=== PATIENT | male | born 1995 | race Hispanic/Latino ===

== ENCOUNTER 2019-04-21 07:28 | Emergency (ER) | payer OTHER ==
--- OUTSIDE RECORDS SUMMARY | 2019-04-21 07:31 | XMS REPORT | Summary of Care ---
:1995 Author Organization [facility] - Health Address [address] [place] [address] Care Team Providers Name Role Phone Unavailable Primary Care Provider Unavailable Encounter Details Date Type Department Care Team Description 04/08/2019 Orders Only [facility] Doctor Unassigned, No [address] [facility] [place] [address] [address] [place] [address] Allergies No Known Allergiesdocumented as of this encounter (statuses as of 04/08/2019) Medications Not on filedocumented as of this encounter (statuses as of 04/08/2019) Active Problems Problem Noted Date Routine infant or child health check 12/24/2006 Overview: 11 1/4 year [facility] documented as of this encounter (statuses as of 04/08/2019) Social History Tobacco Use Types Packs/Day Years Used Date Never Assessed Sex Assigned at Date Recorded Not on file Job Start Date Occupation Industry Not on file Not on file Not on file Travel History Travel Start Travel End No recent travel history available. documented as of this encounter Last Filed Vital Signs Not on filedocumented in this encounter Plan of Treatment Health Maintenance Due Date Last Done Comments MENINGOCOCCAL B VACCINES (1 of 2 - 2007 Risk Bexsero 2-dose series) HPV VACCINES (1 - Male 3-dose 2012 series) DTaP,Tdap,and Td Vaccines (1 - 2016 Tdap) INFLUENZA VACCINE 05/11/2019 MENINGOCOCCAL VACCINE Aged Out No longer eligible based on patient's age to complete this topic documented as of this encounter Procedures Procedure Name Priority Date/Time Associated Diagnosis Comments CONSENT/REFUSAL FOR Routine 04/08/2019 6:21 AM CDT DIAGNOSIS AND TREATMENT documented in this encounter Results Not on filedocumented in this encounter
--- OUTSIDE RECORDS SUMMARY | 2019-04-21 07:31 | XMS REPORT | Summary of Care ---
:1995 Author Organization [facility] - [facility] Address [address] [place] [id number] Care Team Providers Name Role Phone Pcp, Patient Does Not Have A Primary Care Provider Reason for Visit Reason Comments Vomiting Auth/Cert Status Reason Specialty Diagnoses / Referred By Referred To Procedures Contact Contact [facility] [address] [place] [address] [place] [address] Encounter Details Date Type Department Care Team Description 04/08/2019 Emergency [facility] Radha Roque, Headache disorder ( Primary Dx); Department Nausea and vomiting in adult; [address] [place] [address] [place] [address] Elevated blood pressure reading; [place] [address] [id number] Secondary hypertension [phone] [place] [address] Allergies No Known Allergiesdocumented as of this encounter (statuses as of 04/08/2019) Medications Medication Sig Dispensed Refills Start Date End Date Status lisinopril 10 mg Take 1 tablet by 30 tablet 0 04/08/2019 Active tabletIndications: mouth at bedtime. Secondary hypertension documented as of this encounter (statuses as of 04/08/2019) Active Problems Problem Noted Date Routine or child health check 12/24/2006 Overview: 11 1/2 year [facility] documented as of this encounter (statuses as of 04/08/2019) Social History Tobacco Use Types Packs/Day Years Used Date Never Assessed Sex Assigned at Date Recorded Not on file Job Start Date Occupation Industry Not on file Not on file Not on file Travel History Travel Start Travel End No recent travel history available. documented as of this encounter Last Filed Vital Signs Vital Sign Reading Time Taken Comments Blood Pressure 147/100 04/08/2019 8:43 AM CDT Pulse 84 04/08/2019 8:43 AM CDT Temperature 37.2 C (99 F) 04/08/2019 6:27 AM CDT Respiratory Rate 20 04/08/2019 8:43 AM CDT Oxygen Saturation 99% 04/08/2019 8:43 AM CDT Inhaled Oxygen Concentration - - Weight 90.7 kg (200 lb) 04/08/2019 6:32 AM CDT Height - - Body Mass Index - - documented in this encounter Discharge Instructions David Nunez DO - 04/08/2019 DIAGNOSIS Diagnoses that have been ruled out: None Diagnoses that are still under consideration: None Final diagnoses: Headache disorder Nausea and vomiting in adult Elevated blood pressure reading Secondary hypertension NO LIFE-THREATENING FINDINGS ON TODAY'S EXAM. PROCEDURES IN THE ER TODAY: Orders Placed This Encounter Procedures CBC WITH DIFF BASIC METABOLIC PANEL (NA, K, CL, CO2, GLUCOSE, BUN, CREATININE, CA) CBC WITH DIFFERENTIAL LIPASE HEPATIC FUNCTION PANEL (57463) (ALB,T.PRO,BILI T,BU/BC,ALT,AST,ALK PHOS) LIPID PANEL (20921)(TOTAL CHOLESTEROL, TRIGLYCERIDES, HDL) MEDICATIONS ADMINISTERED IN THE ER TODAY AND DISCHARGE MEDICATIONS: Orders Placed This Encounter Medications metoclopramide HCl (REGLAN) injection 10 mg FENTanyl PF (SUBLIMAZE (PF)) injection 50 mcg FOLLOW-UP RECOMMENDATIONS: RECOMMEND FOLLOW-UP WITH A PRIMARY CARE PROVIDER OR SPECIALIST IN 2-5 DAYS, ESPECIALLY IF NO IMPROVEMENT IN SYMPTOMS. MAY FOLLOW-UP WITH A PROVIDER OF YOUR CHOICE, SUCH : 1. A PHYSICIAN OF YOUR CHOICE 2. [facility], . LOCATIONS IN [facility] 3. [facility], [address] [place] [address]; OR, IF YOU WISH TO FOLLOW-UP WITHIN THE [facility], MAY TRY THESE OPTIONS (CLINIC APPOINTMENTS AVAILABLE ON XSOV-FS-DSOV BASIS): 1. SCHEDULE AN APPOINTMENT ONLINE AT WWW[facility] 2. OR CALL THE [facility] AT OR 3. OR CALL YOUR [facility] PHYSICIAN'S OFFICE DIRECTLY IF YOU ARE ALREADY AN ESTABLISHED [facility] PATIENT. RETURN TO ER FOR WORSENING OF SYMPTOMS. AttachmentsThe following attachments cannot be sent through Care Everywhere.Choices, Low-Salt (Marshallese)documented in this encounter Plan of Treatment Health Maintenance Due Date Last Done Comments MENINGOCOCCAL B VACCINES (1 of 2 - 2007 Risk Bexsero 2-dose series) VARICELLA VACCINES (1 of 2 - 13+ 2010 2-dose series) HPV VACCINES (1 - Male 3-dose 2012 series) DTaP,Tdap,and Td Vaccines (1 - 2016 Tdap) INFLUENZA VACCINE 05/11/2019 MENINGOCOCCAL VACCINE Aged Out No longer eligible based on patient's age to complete this topic PNEUMOCOCCAL 0-64 YEARS COMBINED Aged Out No longer eligible based on SERIES patient's age to complete this topic documented as of this encounter Procedures Procedure Name Priority Date/Time Associated Comments Diagnosis CBC WITH DIFFERENTIAL STAT 04/08/2019 6:45 Headache disorder Results for this AM CDT procedure are in the results section. CBC WITH DIFF STAT 04/08/2019 6:45 Headache disorder Results for this AM CDT procedure are in the results section. LIPID PANEL STAT Add-On 04/08/2019 6:45 Nausea and Results for this (43917)(TOTAL AM CDT vomiting in adult procedure are in CHOLESTEROL, the results TRIGLYCERIDES, HDL) section. BASIC METABOLIC PANEL STAT 04/08/2019 6:45 Headache disorder Results for this (NA, K, CL, CO2, AM CDT procedure are in GLUCOSE, BUN, the results CREATININE, CA) section. HEPATIC FUNCTION STAT 04/08/2019 6:45 Headache disorder Results for this PANEL (25093) AM CDT procedure are in (ALB,T.PRO,BILI the results T,BU/BC,ALT,AST,ALK section. PHOS) LIPASE STAT 04/08/2019 6:45 Headache disorder Results for this AM CDT procedure are in the results section. NOTICE OF PRIVACY Routine 04/08/2019 6:21 PRACTICES AM CDT documented in this encounter Results LIPID PANEL (04801)(TOTAL CHOLESTEROL, TRIGLYCERIDES, HDL) (04/08/2019 6:45 AM CDT) CHOL 201 (H) 120 - 200 mg/dL [facility] HDL 39 (L) >40 mg/dL [facility] HDLC RATIO 5.2 (H) <=5.0 [facility] TRIG 213 (H) 30 - 170 mg/dL [facility] LDL CHOL 119 <=160 mg/dL [facility] VLDL 43 5 - 60 mg/dL [facility] Specimen Blood - VENOUS Performing Organization Address [facility] Phone Number [facility] CLIA: [id number], [address] [place] [address] HEPATIC FUNCTION PANEL ([id number]) (ALB,T.PRO,BILI T,BU/BC,ALT,AST,ALK PHOS) (2018 6:45 AM CDT) TOTAL BILI 0.5 0.1 - 1.1 mg/dL [facility] BILI UNCON 0.3 0.1 - 1.1 mg/dL [facility] BILI CONJ 0.0 0.0 - 0.3 mg/dL [facility] T PROTEIN 7.8 6.3 - 8.2 g/dL [facility] ALBUMIN 4.6 3.5 - 5.0 g/dL [facility] ALK PHOS 87 34 - 122 U/L [facility] ALT(SGPT) 150 (H) 9 - 51 U/L [facility] AST(SGOT) 82 (H) 13 - 40 U/L [facility] Specimen Blood - VENOUS Performing Organization Address [facility] Phone Number [facility] CLIA: [id number], [address] [place] [address] LIPASE (04/08/2019 6:45 AM CDT) LIPASE 65 0 - 220 U/L [facility] Specimen Blood - VENOUS Performing Organization Address [facility] Phone Number [facility] CLIA: [id number], [address] [place] [address] CBC WITH DIFFERENTIAL (04/08/2019 6:45 AM CDT) WBC 7.47 4.20 - 10.70 [facility] 10*3/L [facility] RBC 4.74 4.26 - 5.52 [facility] 10*6/L [facility] HGB 14.4 12.2 - 16.4 [facility] g/dL [facility] HCT 41.1 38.4 - 49.3 % [facility] MCV 86.7 81.7 - 95.6 fL [facility] MCH 30.4 26.1 - 32.7 pg [facility] MCHC 35.0 31.2 - 35.0 [facility] g/dL [facility] RDW-SD 42.3 38.5 - 51.6 fL [facility] RDW-CV 13.4 12.1 - 15.4 % [facility] PLT 302 150 - 328 [facility] 10*3/L [facility] MPV 9.7 (L) 9.8 - 13.0 fL [facility] NRBC/100 WBC 0.0 0.0 - 10.0 /100 [facility] WBCs [facility] NRBC x10^3 <0.01 10*3/L [facility] GRAN MAT (NEUT) % 49.6 % [facility] IMM GRAN % 3.10 % [facility] LYMPH % 32.3 % [facility] MONO % 10.3 % [facility] EOS % 3.1 % [facility] BASO % 1.6 % [facility] GRAN MAT x10^3(ANC) 3.71 1.99 - 6.95 [facility] 10*3/uL HOSPITAL LAB[facility]ATORY IMM GRAN x10^3 0.23 (H) 0.00 - 0.06 [facility] 10*3/uL [facility]PITAL [facility] LYMPH x10^3 2.41 1.09 - 3.23 [facility] 10*3/uL [facility]OSPITAL [facility] MONO x10^3 0.77 0.36 - 1.02 [facility] 10*3/uL HOSPITAL LAB[facility]ORY EOS x10^3 0.23 0.06 - 0.53 [facility] 10*3/uL HOSPITAL [facility] BASO x10^3 0.12 (H) 0.01 - 0.09 [facility] 10*3/uL [facility]OSPITAL [facility] Specimen Blood - VENOUS Performing Organization Address City/State/Zipcode Phone Number [facility] CLIA: [id number], [address] [place] [address] BASIC METABOLIC PANEL (NA, K, CL, CO2, GLUCOSE, BUN, CREATININE, CA) (2018 6:45 AM CDT) NA 144 135 - 145 [facility] mmol/L [facility] K 4.1 3.5 - 5.0 [facility] mmol/L [facility] CL 109 (H) 98 - 108 mmol/L [facility] CO2 TOTAL 24 23 - 31 mmol/L [facility] AGAP 11 2 - 16 [facility] BUN 8 7 - 23 mg/dL [facility] GLUCOSE 106 70 - 110 mg/dL [facility] CREATININE 0.70 0.60 - 1.25 [facility] mg/dL [facility] CALCIUM 9.1 8.6 - 10.6 [facility] mg/dL [facility] eGFR Calculation 142.4 mL/min/1.73m2 [facility] (Non[facility] LABORATORY Pakistani) eGFR Calculation 172.5 mL/min/1.73m2 [facility] () [facility] Specimen Blood - VENOUS Narrative Performed At Association of Glomerular Filtration Rate (GFR) [facility] and Staging of Kidney Disease* + + +- + | GFR (mL/min/1.73 m2)| With Kidney Damage|Without Kidney Damage + + +- + |>90| Stage one| Normal + + +- + |60-89|S tage two| Decreased GFR + + +- + |30-59|S tage three| Stage three + + +- + |15-29|S tage four | Stage four + + +- + |<15 (or dialysis)|Stage five | Stage five + + +- + *Each stage assumes the associated GFR level has been in effect for at least three months.Stages 1 to 5, with or without kidney disease, indicate chronic kidney disease. Notes: Determination of stages one and two (with eGFR >59mL/min/1.73 m2) requires estimation of kidney damage for at least three months as defined by structural or functional abnormalities of the kidney, manifested by either: Pathological abnormalities or Markers of kidney damage (including abnormalities in the composition of the blood or urine or abnormalities in imaging tests). Performing Organization Address City/State/Zipcode Phone Number [facility] CLIA: [id number], [address] [place] [address] documented in this encounter Visit Diagnoses Diagnosis Headache disorder - Primary Headache Nausea and vomiting in adult Nausea with vomiting Elevated blood pressure reading Elevated blood pressure reading without diagnosis of hypertension Secondary hypertension Other secondary hypertension, unspecified documented in this encounter Administered Medications Medication Order MAR Action Action Date Dose Rate Site FENTanyl PF (SUBLIMAZE (PF)) Given 04/08/2019 6:47 AM CDT 50 mcg injection 50 mcg 50 mcg, Slow IV Push, ONCE, 1 dose, Sun04/08/19 at 0745, STAT metoclopramide HCl (REGLAN) injection 10 mg Given 04/08/2019 6:47 AM CDT 10 mg 10 mg, Slow IV Push, ONCE, 1 dose, Sun04/08/19 at 0745, DAVID documented in this encounter"
--- OUTSIDE RECORDS SUMMARY | 2019-04-21 07:31 | XMS REPORT ---
:1995 [facility] Address [facility] Elena [address] [place] [address] Care Team Providers Name Role Phone Unavailable Unavailable Unavailable Problems This patient has no known problems. Allergies, Adverse Reactions, Alerts This patient has no known allergies or adverse reactions. Medications This patient has no known medications.
--- NOTE | 2019-04-21 08:37 | ER ---
Nurse's Notes [facility] Name: Claudio Salinas Age: 23 yrs Sex: Male : 1995 Arrival Date: 04/21/2019 Time: 07:30 Bed 13 Private MD: Diagnosis: Pneumonitis due to inhalation of other solids and liquids Presentation: 04/21 07:42 Presenting complaint: Patient states: " I was on my way to work and I started coughing ph a whole lot and my chest started hurting." Pt reports cough x 2-3 days, denies fever or chills, reports that chest pain is worsened by cough, denies SOB. Transition of care: patient was not received from another setting of care. Onset of symptoms was April 21, 2019. Risk Assessment: Do you want to hurt yourself or someone else? Patient reports no desire to harm self or others. Initial Sepsis Screen: Does the patient meet any 2 criteria? No. Patient's initial sepsis screen is negative. Does the patient have a suspected source of infection? No. Patient's initial sepsis screen is negative. Care prior to arrival: None. 07:42 Method Of Arrival: Ambulatory ph 07:42 Acuity: LIVIER 4 ph Historical: - Allergies: 07:47 No Known Allergies; ph - Home Meds: 07:47 None [Active]; ph - PMHx: 07:47 None; ph - PSHx: 07:47 None; ph - Immunization history:: Adult Immunizations unknown. - Social history:: Smoking status: Patient/guardian denies using tobacco. - Ebola Screening: : No symptoms or risks identified at this time. Screenin:47 Abuse screen: Denies threats or abuse. Denies injuries from another. Nutritional ph screening: No deficits noted. Tuberculosis screening: No symptoms or risk factors identified. Fall Risk None identified. Assessment: 07:48 General: Appears in no apparent distress. comfortable, Behavior is calm, cooperative, ph appropriate for age, Denies fever, chills. Pain: Complains of pain in chest Pain does not radiate. Pain began 1 hour ago. Aggravated by "coughing". Neuro: Level of Consciousness is awake, alert, obeys commands, Oriented to person, place, time, situation. Cardiovascular: Reports chest pain, Denies nausea, palpitations, shortness of breath, Capillary refill < 3 seconds in bilateral fingers Patient's skin is warm and dry. Respiratory: Reports cough that is non-productive, pain with cough Airway is patent Respiratory effort is even, unlabored, Respiratory pattern is regular, symmetrical, Denies shortness of breath. GI: No signs and/or symptoms were reported involving the gastrointestinal system. Derm: Skin is intact, is healthy with good turgor, Skin is pink, warm \\T\\ dry. Musculoskeletal: Circulation, motion, and sensation intact. Range of motion: intact in all extremities. 09:00 Reassessment: Patient appears in no apparent distress at this time. Patient and/or ph family updated on plan of care and expected duration. Pain level reassessed. Patient is alert, oriented x 3, equal unlabored respirations, skin warm/dry/pink. Pt d/c home w/ family. Vital Signs: 07:45 BP 145 / 88; Pulse 84; Resp 18; Temp 98.2; Pulse Ox 100% on R/A; Weight 108.86 kg; ph Height 5 ft. 10 in. (177.80 cm); Pain 8/10; 09:00 BP 126 / 65; Pulse 85; Resp 18; Temp 97.9; Pulse Ox 100% on R/A; ph 07:45 Body Mass Index 34.44 (108.86 kg, 177.80 cm) ph ED Course: 07:30 Patient arrived in ED. rg4 07:35 Alison William FNP-C [facility]. snw 07:35 Osmar Love MD is Attending Physician. snw 07:42 Emily Bedolla RN is Primary Nurse. ph 07:45 Triage completed. ph 07:47 Arm band placed on Patient placed in a hallway bed, on a stretcher, on pulse oximetry. ph 07:50 Patient has correct armband on for positive identification. Bed in low position. Call ph light in reach. Pulse ox on. NIBP on. Door closed. Noise minimized. Head of bed elevated. 07:50 Patient maintains SpO2 saturation greater than 95% on room air. ph 08:05 Patient moved to radiology via wheelchair. jb2 08:11 X-ray completed. Patient tolerated procedure well. jb2 08:12 Chest Pa And Lat (2 Views) XRAY In Process Unspecified. EDMS 08:15 Patient moved back from radiology. jb2 08:45 No provider procedures requiring assistance completed. Urine collected: clean catch ph specimen, clear, cassie colored. Patient did not have IV access during this emergency room visit. Administered Medications: 08:40 Drug: TORadol 30 mg Route: IM; Site: right deltoid; ph 08:58 Follow up: Response: No adverse reaction; Pain is decreased ph Outcome: 08:37 Discharge ordered by . corinne 09:01 Discharged to home ambulatory, with family. ph 09:01 Condition: good 09:01 Discharge instructions given to patient, Instructed on discharge instructions, follow up and referral plans. medication usage, Demonstrated understanding of instructions, follow-up care, medications, Prescriptions given X 1. 09:01 Patient left the ED. Signatures: Dispatcher [employer] EDMS Alison William, SALOME CALLAHANP-Milo Berkowitz jb2 Emily Bedolla RN RN Esperanza Waldrop rg4
--- NOTE | 2019-04-21 08:37 | EDPHYS ---
Physician Documentation [facility] Name: Claudio Salinas Age: 23 yrs Sex: Male : 1995 Arrival Date: 04/21/2019 Time: 07:30 Bed 13 Private MD: ED Physician Osmar Love HPI: 04/21 08:43 This 23 yrs old Male presents to ER via Ambulatory with complaints of Cough, snw Chest Pain. 08:43 The patient or guardian reports cough, described as moderate, with no sputum. Onset: snw The symptoms/episode began/occurred suddenly, 3 day(s) ago, and became worse and became persistent. Severity of symptoms: At their worst the symptoms were moderate. Associated signs and symptoms: Pertinent positives: chest pain. The patient has not experienced similar symptoms in the past. The patient has not recently seen a physician. pt works with [employer] . Historical: - Allergies: 07:47 No Known Allergies; ph - Home Meds: 07:47 None [Active]; ph - PMHx: 07:47 None; ph - PSHx: 07:47 None; ph - Immunization history:: Adult Immunizations unknown. - Social history:: Smoking status: Patient/guardian denies using tobacco. - Ebola Screening: : No symptoms or risks identified at this time. ROS: 08:43 Constitutional: Negative for fever, chills, and weight loss, Eyes: Negative for injury, snw pain, redness, and discharge, ENT: Negative for injury, pain, and discharge, Neck: Negative for injury, pain, and swelling, Abdomen/GI: Negative for abdominal pain, nausea, vomiting, diarrhea, and constipation, Back: Negative for injury and pain, : Negative for injury, bleeding, discharge, and swelling, MS/Extremity: Negative for injury and deformity, Skin: Negative for injury, rash, and discoloration, Neuro: Negative for headache, weakness, numbness, tingling, and seizure. 08:43 Cardiovascular: Positive for chest pain, with cough. 08:43 Respiratory: Positive for cough, with no reported sputum, Negative for hemoptysis, shortness of breath. Exam: 08:43 Constitutional: This is a well developed, well nourished patient who is awake, alert, snw and in no acute distress. Head/Face: Normocephalic, atraumatic. Eyes: Pupils equal round and reactive to light, extra-ocular motions intact. Lids and lashes normal. Conjunctiva and sclera are non-icteric and not injected. Cornea within normal limits. Periorbital areas with no swelling, redness, or edema. ENT: Nares patent. No nasal discharge, no septal abnormalities noted. Tympanic membranes are normal and external auditory canals are clear. Oropharynx with no redness, swelling, or masses, exudates, or evidence of obstruction, uvula midline. Mucous membranes moist. Neck: Trachea midline, no thyromegaly or masses palpated, and no cervical lymphadenopathy. Supple, full range of motion without nuchal rigidity, or vertebral point tenderness. No Meningismus. Chest/axilla: Normal chest wall appearance and motion. Nontender with no deformity. No lesions are appreciated. Cardiovascular: Regular rate and rhythm with a normal S1 and S2. No gallops, murmurs, or rubs. Normal PMI, no JVD. No pulse deficits. Respiratory: Lungs have equal breath sounds bilaterally, clear to auscultation and percussion. No rales, rhonchi or wheezes noted. No increased work of breathing, no retractions or nasal flaring. Abdomen/GI: Soft, non-tender, with normal bowel sounds. No distension or tympany. No guarding or rebound. No evidence of tenderness throughout. Back: No spinal tenderness. No costovertebral tenderness. Full range of motion. Skin: Warm, dry with normal turgor. Normal color with no rashes, no lesions, and no evidence of cellulitis. MS/ Extremity: Pulses equal, no cyanosis. Neurovascular intact. Full, normal range of motion. Neuro: Awake and alert, GCS 15, oriented to person, place, time, and situation. Cranial nerves II-XII grossly intact. Motor strength 5/5 in all extremities. Sensory grossly intact. Cerebellar exam normal. Normal gait. Psych: Awake, alert, with orientation to person, place and time. Behavior, mood, and affect are within normal limits. Vital Signs: 07:45 BP 145 / 88; Pulse 84; Resp 18; Temp 98.2; Pulse Ox 100% on R/A; Weight 108.86 kg; ph Height 5 ft. 10 in. (177.80 cm); Pain 8/10; 09:00 BP 126 / 65; Pulse 85; Resp 18; Temp 97.9; Pulse Ox 100% on R/A; ph 07:45 Body Mass Index 34.44 (108.86 kg, 177.80 cm) ph MDM: 07:49 Patient medically screened. snw 08:46 Data reviewed: vital signs, nurses notes, lab test result(s), EKG, radiologic studies. snw Data interpreted: Pulse oximetry: on room air is 100 %. Interpretation: normal. Counseling: I had a detailed discussion with the patient and/or guardian regarding: the historical points, exam findings, and any diagnostic results supporting the discharge/admit diagnosis, radiology results, the need for outpatient follow up, to return to the emergency department if symptoms worsen or persist or if there are any questions or concerns that arise at home. Special discussion: Based on the patient's history, exam, and Dx evaluation, there is no indication for emergent intervention or inpatient Tx. It is understood by the patient/guardian that if the Sx's persist or worsen they need to return immediately for re-evaluation. Based on the history and exam findings, there is no indication for further emergent testing or inpatient evaluation. I discussed with the patient/guardian the need to see the primary care provider for further evaluation of the symptoms. 04/21 07:59 Order name: UDS; Complete Time: 12:15 snw 04/21 08:46 Order name: Urine Dipstick--Ancillary (enter results); Complete Time: 12:15 bd 04/21 07:35 Order name: EKG; Complete Time: 07:39 snw 04/21 07:35 Order name: EKG - Nurse/Tech; Complete Time: 07:51 snw 04/21 07:35 Order name: Chest Pa And Lat (2 Views) XRAY; Complete Time: 12:15 snw Administered Medications: 08:40 Drug: TORadol 30 mg Route: IM; Site: right deltoid; ph 08:58 Follow up: Response: No adverse reaction; Pain is decreased ph Disposition: 10:54 Co-signature as Attending Physician, Osmar Love MD. rn Disposition: 04/21/19 08:37 Discharged to Home. Impression: Pneumonitis due to inhalation of other solids and liquids. - Condition is Stable. - Discharge Instructions: Pneumonitis, Rehydration, Adult. - Prescriptions for Mobic 7.5 mg Oral Tablet - take 1 tablet by ORAL route once daily take with food; 20 tablet. - Work release form, Medication Reconciliation Form, Thank You Letter, Antibiotic Education, Prescription Opioid Use form. - Follow up: Private Physician; When: 2 - 3 days; Reason: Recheck today's complaints, Continuance of care, Re-evaluation by your physician. Follow up: Emergency Department; When: As needed. Signatures: Dispatcher [employer] EDAlison Russo, REBA-C [facility] [employer] Osmar Love MD MD rn Emily Bedolla RN RN ph Corrections: (The following items were deleted from the chart) 09:01 08:37 04/21/2019 08:37 Discharged to Home. Impression: Pneumonitis due to inhalation of ph other solids and liquids. Condition is Stable. Forms are Medication Reconciliation Form, Thank You Letter, Antibiotic Education, Prescription Opioid Use. Follow up: Private Physician; When: 2 - 3 days; Reason: Recheck today's complaints, Continuance of care, Re-evaluation by your physician. Follow up: Emergency Department; When: As needed. snw
[2019-04-21] MEDS ORDERED: KETOROLAC 30 MG/ML INJ ONE (08:39)
--- NOTE | 2019-04-21 09:00 | RAD REPORT ---
EXAM DESCRIPTION: RAD - Chest Pa And Lat (2 Views) - 04/21/2019 8:20 am CLINICAL HISTORY: CHEST PAIN Chest pain. COMPARISON: No comparisons FINDINGS: The lungs are clear. The heart is normal in size. No displaced fractures. IMPRESSION: No acute or concerning finding suspected.
[2019-04-21 09:01] LABS: Urine Blood NEGATIVE (NEG); Urine Glucose NEGATIVE (NEG); Urine Protein NEGATIVE (NEG); Urine Specific Gravity >1.030 (1.005-1.030); Urine pH 5.5 (5.0-7.0)
[2019-04-21 09:11] VITALS: O2SAT 100
[2019-04-21 09:12] VITALS: BP 126/65; TEMP 97.9
[2019-04-21 09:18] LABS: Barbiturates NEGATIVE (NEGATIVE); Benzodiazepines NEGATIVE (NEGATIVE); Cocaine NEGATIVE (NEGATIVE); METHAMPHETAM NEGATIVE (NEGATIVE); Methadone NEGATIVE (NEGATIVE); Opiates NEGATIVE (NEGATIVE); Phencyclidine NEGATIVE (NEGATIVE); THC Cannibis NEGATIVE (NEGATIVE)
--- NOTE | 2019-04-21 10:40 | EKG ---
Test Date: 2019-04-21 Test Time: 07:48:28 [employer] Assurance Test Program Manager: ADAN MEASUREMENT RESULTS: Intervals: Rate: 76 [place]: 132 QRSD: 90 QT: 358 QTc: 402 [place]: P: 34 [place]: 132 QRS: 13 T: 13 INTERPRETIVE STATEMENTS: Normal sinus rhythm Normal ECG No previous ECG available for comparison Electronically Signed On 04-21-19 10:39:17 CDT by Kapil Wilburn
== END 2019-04-21 09:01 | disposition home or self-care (01) ==
LOC: ER 07:28
DX: J69.8 Pneumonitis due to inhalation of other solids and liquids (principal)
CPT/HCPCS: 71046; 80307; 81003; 93005; 96372; 99284

== ENCOUNTER 2020-05-13 12:19 | Emergency (ER) | payer OTHER ==
--- OUTSIDE RECORDS SUMMARY | 2020-05-13 12:41 | XMS REPORT | Continuity of Care Document ---
:1995 Author Organization [facility] t Address [address] [place] [address] Care Team Providers Name Role Phone Radha Roque MD Attending Clinician Doctor Unassigned, Name Attending Clinician Unavailable Problems This patient has no known problems. Allergies, Adverse Reactions, Alerts This patient has no known allergies or adverse reactions. Medications This patient has no known medications. Procedures This patient has no known procedures. Encounters Start End Encounter Admission Attending Care Care Encounter Source Date/Time Date/Time Type Type Clinicians Facility Department ID 2019-04-08 2019-04-08 Emergency Jude [facility] [[email or web address]] [id number] 06:28:23 08:49:00 Radha Chan [id number] [place] [id number] [place] [id number] 2019-04-08 2019-04-08 Orders Doctor DUNN [id number] 00:00:00 00:00:00 Only UnassignedWONG [id number] [place] [facility] [id number] Results This patient has no known results.
--- NOTE | 2020-05-13 12:50 | EDPHYS ---
Physician Documentation [facility] Name: Claudio Salinas Age: 24 yrs Sex: Male : 1995 Arrival Date: 05/13/2020 Time: 12:20 Bed 17 Private MD: ED Physician Titi Vazquez HPI: 05/13 12:50 This 24 yrs old Male presents to ER via Ambulatory with complaints of Ear Pain.jr8 12:50 The patient presents with pain. The complaints affect the left ear. Onset: The jr8 symptoms/episode began/occurred acutely, 3 day(s) ago, and became worse. Modifying factors: The symptoms are alleviated by nothing, the symptoms are aggravated by nothing. Associated signs and symptoms: The patient has no apparent associated signs or symptoms. Severity of symptoms: At their worst the symptoms were mild in the emergency department the symptoms are unchanged. The patient has not experienced similar symptoms in the past. The patient has not recently seen a physician. Historical: - Allergies: 12:26 No Known Allergies; hb - Home Meds: 12:26 None [Active]; hb - PMHx: 12:26 None; hb - PSHx: 12:26 None; hb - Immunization history:: Adult Immunizations up to date. - Social history:: Smoking status: Patient denies any tobacco usage or history of. ROS: 12:50 Eyes: Negative for injury, pain, redness, and discharge, Neck: Negative for injury, jr8 pain, and swelling, Cardiovascular: Negative for chest pain, palpitations, and edema, Respiratory: Negative for shortness of breath, cough, wheezing, and pleuritic chest pain, Abdomen/GI: Negative for abdominal pain, nausea, vomiting, diarrhea, and constipation, Back: Negative for injury and pain, MS/Extremity: Negative for injury and deformity, Skin: Negative for injury, rash, and discoloration, Neuro: Negative for headache, weakness, numbness, tingling, and seizure. 12:50 ENT: Positive for ear pain. Exam: 12:50 Eyes: Pupils equal round and reactive to light, extra-ocular motions intact. Lids and jr8 lashes normal. Conjunctiva and sclera are non-icteric and not injected. Cornea within normal limits. Periorbital areas with no swelling, redness, or edema. ENT: Nares patent. No nasal discharge, no septal abnormalities noted. Tympanic membranes are with erythema and dullness on left side. Right TM normal. External auditory canals are clear. Oropharynx with no redness, swelling, or masses, exudates, or evidence of obstruction, uvula midline. Mucous membranes moist. Neck: Trachea midline, no thyromegaly or masses palpated, and no cervical lymphadenopathy. Supple, full range of motion without nuchal rigidity, or vertebral point tenderness. No Meningismus. Cardiovascular: Regular rate and rhythm with a normal S1 and S2. No gallops, murmurs, or rubs. Normal PMI, no JVD. No pulse deficits. Respiratory: Lungs have equal breath sounds bilaterally, clear to auscultation and percussion. No rales, rhonchi or wheezes noted. No increased work of breathing, no retractions or nasal flaring. Abdomen/GI: Soft, non-tender, with normal bowel sounds. No distension or tympany. No guarding or rebound. No evidence of tenderness throughout. Skin: Warm, dry with normal turgor. Normal color with no rashes, no lesions, and no evidence of cellulitis. MS/ Extremity: Pulses equal, no cyanosis. Neurovascular intact. Full, normal range of motion. Neuro: Awake and alert, GCS 15, oriented to person, place, time, and situation. Cranial nerves II-XII grossly intact. Motor strength 5/5 in all extremities. Sensory grossly intact. Cerebellar exam normal. Normal gait. Vital Signs: 12:25 BP 144 / 95; Pulse 93; Resp 16; Temp 97.2; Pulse Ox 100% on R/A; Weight 117.93 kg; hb Height 5 ft. 11 in. (180.34 cm); Pain 0/10; 13:04 BP 137 / 87; Pulse 79; Resp 17; Temp 97.5; Pulse Ox 99% ; bp 12:25 Body Mass Index 36.26 (117.93 kg, 180.34 cm) hb MDM: 12:47 Patient medically screened. jr8 12:50 Data reviewed: vital signs, nurses notes, and as a result, I will discharge patient. jr8 Data interpreted: Pulse oximetry: on room air is 100 %. Interpretation: normal. Counseling: I had a detailed discussion with the patient and/or guardian regarding: the historical points, exam findings, and any diagnostic results supporting the discharge/admit diagnosis, the need for outpatient follow up, a family practitioner. Administered Medications: No medications were administered Disposition: 17:06 Co-signature as Attending Physician, Titi Vazquez MD I agree with the assessment and kdr plan of care. Disposition: 05/13/20 12:50 Discharged to Home. Impression: Acute suppurative otitis media. - Condition is Stable. - Discharge Instructions: Otitis Media, Adult. - Prescriptions for Amoxicillin 875 mg Oral Tablet - take 1 tablet by ORAL route every 12 hours for 10 days; 20 tablet. - Medication Reconciliation Form, Thank You Letter, Antibiotic Education, Prescription Opioid Use form. - Follow up: Private Physician; When: As needed; Reason: Recheck today's complaints, Continuance of care, Re-evaluation by your physician. - Problem is new. - Symptoms have improved. Signatures: Titi Vazquez MD MD [facility] Aidan Plunkett PA PA jr8 Jayashree Carrington, RN RN Robert Purcell RN RN bp Corrections: (The following items were deleted from the chart) 13:06 12:50 05/13/2020 12:50 Discharged to Home. Impression: Acute suppurative otitis media. bp Condition is Stable. Forms are Medication Reconciliation Form, Thank You Letter, Antibiotic Education, Prescription Opioid Use. Follow up: Private Physician; When: As needed; Reason: Recheck today's complaints, Continuance of care, Re-evaluation by your physician. Problem is new. Symptoms have improved. jr8
--- NOTE | 2020-05-13 12:50 | ER ---
[facility] Name: Claudio Salinas Age: 24 yrs Sex: Male : 1995 Arrival Date: 05/13/2020 Time: 12:20 Bed 17 Private MD: Diagnosis: Acute suppurative otitis media Presentation: 05/13 12:25 Chief complaint: Decreased hearing in left ear x 3 days. Denies pain/fever. Coronavirus hb screen: At this time, the client does not indicate any symptoms associated with coronavirus-19. Ebola Screen: No symptoms or risks identified at this time. Initial Sepsis Screen: Does the patient meet any 2 criteria? No. Patient's initial sepsis screen is negative. Does the patient have a suspected source of infection? No. Patient's initial sepsis screen is negative. Risk Assessment: Do you want to hurt yourself or someone else? Patient reports no desire to harm self or others. Onset of symptoms was May 11, 2020. 12:25 Method Of Arrival: Ambulatory hb 12:25 Acuity: LIVIER 4 hb Triage Assessment: 12:30 General: Appears in no apparent distress. uncomfortable, Behavior is calm, cooperative, bp appropriate for age. Pain: Complains of pain in left ear. EENT: Reports pain in left ear. Neuro: No deficits noted. Cardiovascular: No deficits noted. Respiratory: No deficits noted. GI: No signs and/or symptoms were reported involving the gastrointestinal system. : No signs and/or symptoms were reported regarding the genitourinary system. Derm: No deficits noted. Musculoskeletal: No deficits noted. Historical: - Allergies: 12:26 No Known Allergies; hb - Home Meds: 12:26 None [Active]; hb - PMHx: 12:26 None; hb - PSHx: 12:26 None; hb - Immunization history:: Adult Immunizations up to date. - Social history:: Smoking status: Patient denies any tobacco usage or history of. Screenin:30 Abuse screen: Denies threats or abuse. Denies injuries from another. Nutritional bp screening: No deficits noted. Tuberculosis screening: No symptoms or risk factors identified. Fall Risk None identified. Assessment: 12:30 General: SEE TRIAGE NOTE. bp 13:04 Reassessment: PT D/C HOME AMBULATORY, DX WITH OTITIS MEDIA. bp Vital Signs: 12:25 BP 144 / 95; Pulse 93; Resp 16; Temp 97.2; Pulse Ox 100% on R/A; Weight 117.93 kg; hb Height 5 ft. 11 in. (180.34 cm); Pain 0/10; 13:04 BP 137 / 87; Pulse 79; Resp 17; Temp 97.5; Pulse Ox 99% ; bp 12:25 Body Mass Index 36.26 (117.93 kg, 180.34 cm) hb ED Course: 12:20 Patient arrived in ED. ds1 12:25 Triage completed. hb 12:26 Arm band placed on. hb 12:30 Robert Purcell, RN is Primary Nurse. bp 12:30 Patient has correct armband on for positive identification. Bed in low position. Call bp light in reach. Side rails up X2. 12:47 Aidan Plunkett PA is PHCP. jr8 12:47 Titi Vazquez MD is Attending Physician. jr8 13:04 No provider procedures requiring assistance completed. Patient did not have IV access bp during this emergency room visit. Administered Medications: No medications were administered Outcome: 12:50 Discharge ordered by . jr8 13:04 Discharged to home ambulatory. bp 13:04 Condition: stable 13:04 Discharge instructions given to patient, Instructed on discharge instructions, follow up and referral plans. medication usage, Demonstrated understanding of instructions, follow-up care, medications, Prescriptions given X 1. 13:06 Patient left the ED. bp Signatures: [facility] ds1 Aidan Plunkett PA PA jr8 Jayashree Carrington RN RN Robert Purcell, AMAIRANI RN bp
[2020-05-15 06:18] VITALS: BP 137/87; TEMP 97.5; O2SAT 99
== END 2020-05-13 13:06 | disposition home or self-care (01) ==
LOC: ER 12:19
DX: H66.002 Acute suppurative otitis media without spontaneous rupture of ear drum, left ear (principal)
CPT/HCPCS: 99282